=== PATIENT | male | born 1980 | race Caucasian/White ===

== ENCOUNTER 2016-10-26 12:04 | Emergency (ER) | payer SELFPAY ==
[2016-10-26] MEDS ORDERED: Ketorolac Tromethamine 60 MG/2 ML VIAL ONE (12:24)
[2016-10-26 12:47] LABS: #Basophils 0.1 thou/uL (0.0-0.2); #Eosinphils 0.2 thou/uL (0.0-0.7); #Lymphocytes 3.2 thou/uL (1.20-3.40); #Monocytes 0.7 thou/uL (0.11-0.59); #Neutrophils 7.3 thou/uL (1.40-6.50); %Basophils 1.1 % (0.0-1.0); %Eosinophils 1.7 % (0.0-10.0); %Neutrophils 63.2 % (42.0-75.0); Hemoglobin 15.4 g/dL (14.0-18.0); Mean Corpuscular HGB CONC 32.7 g/dL (32.0-36.0); Mean Corpuscular Hemoglobin 30.8 pg (27.0-31.0); Mean Corpuscular Volume 94.3 fl (80.0-94.0); Mean Platelet Volume 7.4 fL (7.4-10.4); Platelet Count 221 thou/uL (130-400); RBC Distribution Width 12.2 % (11.5-14.5); White Blood Cell (WBC) Count 11.6 thou/uL (4.8-10.8)
[2016-10-26 13:00] LABS: Anion Gap 12 mmol/L (10-20); BUN (Urea Nitrogen) 12 mg/dL (8.9-20.6); Calc. Creatinine Clearance 0 mL/min (70-130); Calcium 9.5 mg/dL (7.8-10.44); Carbon Dioxide 22 mmol/L (22-29); Chloride 108 mmol/L (98-107); Estimated GFR-MDRD Greater than 90; Glucose 96 mg/dL (70-105); Potassium 3.9 mmol/L (3.5-5.1); Sodium 138 mmol/L (136-145)
== END 2016-10-26 13:17 | disposition home or self-care (01) ==
LOC: MADERS 12:04
DX: R51 Headache (principal); K02.9 Dental caries, unspecified; F17.210 Nicotine dependence, cigarettes, uncomplicated
CPT/HCPCS: 36415; 80048; 85025; 85652; 96372; J1885

== ENCOUNTER 2022-08-15 09:55 | Emergency (ER) | payer SELFPAY | END 2022-08-15 10:15 | disposition home or self-care (01) | LOC: MADERS 09:55 | DX: S39.012A Strain of muscle, fascia and tendon of lower back, initial encounter (principal); F17.210 Nicotine dependence, cigarettes, uncomplicated; X50.0XXA Overexertion from strenuous movement or load, initial encounter | CPT/HCPCS: 99283 ==

== ENCOUNTER 2022-12-22 08:54 | Emergency (ER) | payer OTHER | END 2022-12-22 09:20 | disposition home or self-care (01) | LOC: MADERS 08:54 | DX: S39.012A Strain of muscle, fascia and tendon of lower back, initial encounter (principal); F17.210 Nicotine dependence, cigarettes, uncomplicated; X50.0XXA Overexertion from strenuous movement or load, initial encounter; Y93.F2 Activity, caregiving, lifting; Y92.69 Other specified industrial and construction area as the place of occurrence of the external cause | CPT/HCPCS: 99283 ==

== ENCOUNTER 2023-04-24 20:00 | Emergency (ER) | payer OTHER ==
[2023-04-24] MEDS ORDERED: Amoxicillin/Potassium Clav 875 MG TAB ONE (20:23)
[2023-04-24] MEDS ORDERED: Ibuprofen 800 MG TAB ONE (20:23)
== END 2023-04-24 20:29 | disposition home or self-care (01) ==
LOC: MADERS 20:00
DX: K08.89 Other specified disorders of teeth and supporting structures (principal); F17.210 Nicotine dependence, cigarettes, uncomplicated
CPT/HCPCS: 99282

== ENCOUNTER 2023-10-03 11:12 | Emergency (ER) | payer BC, OTHER ==
[2023-10-03] MEDS ORDERED: AMOXicillin 250 MG CAP ONE (12:29)
[2023-10-03] MEDS ORDERED: Ketorolac Tromethamine 60 MG/2 ML VIAL ONE (12:30)
== END 2023-10-03 12:53 | disposition home or self-care (01) ==
LOC: MADERS 11:12
DX: K04.7 Periapical abscess without sinus (principal); F17.220 Nicotine dependence, chewing tobacco, uncomplicated
CPT/HCPCS: 96372; 99282; J1885

== ENCOUNTER 2023-11-01 11:54 | Emergency (ER) | payer OTHER ==
[2023-11-01] MEDS ORDERED: Ketorolac Tromethamine 60 MG/2 ML VIAL ONE (12:38)
[2023-11-01] MEDS ORDERED: HYDROcodone/Acetaminophen 10/325 mg Tablet ONE (12:38)
== END 2023-11-01 13:13 | disposition home or self-care (01) ==
LOC: MADERS 11:54
DX: R51.9 Headache, unspecified (principal); K04.7 Periapical abscess without sinus; F17.210 Nicotine dependence, cigarettes, uncomplicated
CPT/HCPCS: 70450; 96372; J1885